=== PATIENT | female | born 1970 | race Caucasian/White ===

== ENCOUNTER 2018-09-02 06:57 | Day surgery (SDC) | payer OTHER ==
[~2018-09-02 06:57] MED LIST: Metoclopramide 10 MG/2 ML SDV IV PRN; Sodium Chloride 0.9% 1,000 ML IV SCH
[2018-09-02] MEDS ORDERED: Propofol 200 MG/20 ML SDV ONE (09:15)
--- NOTE | 2018-09-02 14:43 | OR ---
DATE OF OPERATION: 09/02/2018 PREOPERATIVE DIAGNOSIS: Screening colonoscopy. POSTOPERATIVE DIAGNOSIS: Screening colonoscopy. PROCEDURE: Screening colonoscopy. ANESTHESIA: MAC. ESTIMATED BLOOD LOSS: None. COMPLICATIONS: None. INDICATIONS FOR THE PROCEDURE: The patient is a 47-year-old female, here today for her first colonoscopy. Denies any change in bowel habits. Mother has had lots of polyps, otherwise no family history of colon cancer. DESCRIPTION OF PROCEDURE: Informed consent was obtained from the patient. The patient was taken to the operating room and placed on the table in left lateral decubitus position. Monitored anesthesia care was administered. Digital rectal exam was performed and was normal. Colonoscope then advanced through the anus and directed toward the cecum. Cecum was reached by identifying the appendiceal orifice and ileocecal valve. Colonoscope was then slowly withdrawn. No masses. No polyps. No areas of ischemia or inflammation. No AV malformations. No diverticula identified. Colonoscope was slowly withdrawn. Rectum also appeared normal. Colonoscope then removed. The patient tolerated the procedure well and was brought to recovery room in good condition. FINDINGS: Normal colonoscopy. RECOMMENDATIONS: Would recommend repeat screening colonoscopy in 10 years. SATURNINO /[id number]
== END 2018-09-02 10:30 | disposition home or self-care (01) ==
LOC: LB.SDS 06:57
PROVIDERS: ATTEND Surgery
DX: Z12.11 Encounter for screening for malignant neoplasm of colon (principal); Z83.71 Family history of colonic polyps
CPT/HCPCS: G0121; J2704; J7030

== ENCOUNTER 2024-10-13 20:45 | Emergency (ER) | payer OTHER ==
[2024-10-13] MEDS ORDERED: Acetaminophen/HYDROcodone 325-5 MG Tab ONE (21:00)
== END 2024-10-13 21:40 | disposition home or self-care (01) ==
LOC: LB.ED 20:45
DX: S40.022A Contusion of left upper arm, initial encounter (principal); E03.9 Hypothyroidism, unspecified; Z79.899 Other long term (current) drug therapy; W28.XXXA Contact with powered lawn mower, initial encounter; Y93.89 Activity, other specified
CPT/HCPCS: 73060; 73090; 99283; A9270

== ENCOUNTER 2025-03-09 09:54 | Day surgery (SDC) | payer OTHER ==
[2025-03-09] MEDS ORDERED: Propofol 200 MG/20 ML SDV ONE (12:00)
== END 2025-03-09 13:05 | disposition home or self-care (01) ==
LOC: LB.SDS 09:54
PROVIDERS: ATTEND Surgery
DX: Z12.11 Encounter for screening for malignant neoplasm of colon (principal); E03.9 Hypothyroidism, unspecified; E66.9 Obesity, unspecified; F41.1 Generalized anxiety disorder; Z68.31 Body mass index [BMI] 31.0-31.9, adult; Z83.719 Family history of colon polyps, unspecified; Z79.899 Other long term (current) drug therapy; Z79.890 Hormone replacement therapy
CPT/HCPCS: 45378; J2704; J7030